=== PATIENT | male | born 1975 | race Caucasian/White ===

== ENCOUNTER 2018-12-07 15:21 | Emergency (ER) | payer BC ==
[~2018-12-07] VITALS: Ht 172.7 cm; Wt 72.7 kg
[2018-12-07] MEDS ORDERED: RANITIDINE150 M1 PO (15:39)
[2018-12-07 16:00] LABS: GFR > 60 ML/MIN (>=60 (CALC)); GFR FOR AFR.AMER. > 60 ML/MIN (>=60 (CALC))
[2018-12-07 16:20] LABS: HEMATOCRIT 48.4 % (39.0-50.0); HEMOGLOBIN 15.6 g/dl (14.0-18.0); IMMATURE GRANULOCYTES 0.6 % (0.0-5.0); MEAN CELL VOLUME 82.2 fL CALC (80.0-100.0); MEAN CORPUSCULAR HGB 26.5 pG CALC (26.0-32.0); MEAN CORPUSCULAR HGB CONC 32.2 g/L CALC (32.0-36.0); NEUT# 12.34 thou/uL (1.82-7.42); RED BLOOD COUNT 5.89 mill/uL (4.70-6.10); RED CELL DISTRI WIDTH 13.7 % (11.5-15.5)
[2018-12-07 16:40] LABS: ALBUMIN 4.7 g/dL (3.2-5.0); ALKALINE PHOSPHATASE 83 u/l (38-126); BILIRUBIN, TOTAL 0.6 mg/dL (0.0-1.4); BUN 11 mg/dL (9-20); BUN/CREATININE RATIO 14 (12-20 (CALC)); CARBON DIOXIDE 24 mmol/l (22-30); CHLORIDE 102 mmol/l (95-108); CREATININE 0.8 mg/dL (0.7-1.3); GFR > 60 ML/MIN (>=60 (CALC)); GFR FOR AFR.AMER. > 60 ML/MIN (>=60 (CALC)); SGOT/AST 28 u/l (17-59); SODIUM 139 mmol/l (137-146); TOTAL PROTEIN 7.4 g/dL (6.3-8.2)
[2018-12-07 16:49] LABS: ANION GAP 16 (6-22 (CALC)); POTASSIUM 3.4 mmol/l (3.5-5.1)
[2018-12-07 18:26] LABS: LIPASE 48321 u/l (23-300)
[2018-12-07 21:43] LABS: URINE BILIRUBIN - DIPSTICK NEGATIVE (NEGATIVE); URINE BLOOD DIPSTICK TRACE-INTACT (NEGATIVE); URINE COLOR YELLOW; URINE GLUCOSE - DIPSTICK NEGATIVE (NEGATIVE); URINE KETONE NEGATIVE (NEGATIVE); URINE LEUK ESTERASE NEGATIVE (Negative); URINE NITRITE - DIPSTICK NEGATIVE (Negative); URINE PROTEIN - DIPSTICK NEGATIVE (NEG-TRACE); URINE SPECIFIC GRAVITY 1.015; URINE UROBILINOGEN - DIPSTICK 0.2 E.U./dL (0.2)
[2018-12-07 21:45] LABS: URINE CLARITY CLEAR
[2018-12-08 01:55] VITALS: BP 133/72
== END 2018-12-08 01:55 | disposition short-term general hospital (02) | DRG 440 ==
LOC: ED 15:21
PROVIDERS: Family Medicine
DX: K85.90 Acute pancreatitis without necrosis or infection, unspecified (principal)
CPT/HCPCS: Q9967

== ENCOUNTER 2023-08-28 14:53 | Emergency (ER) | payer BC ==
[~2023-08-28] VITALS: Ht 172.7 cm; Wt 77.0 kg
[~2023-08-28 14:53] MED LIST: RANITIDINE150 M1 PO
[2023-08-28 15:24] VITALS: BP 152/87
[2023-08-28] MEDS ORDERED: LIDOcaine HCl 1% (Local Anesth.) 20 ML VIAL STI STA (15:24)
[2023-08-28] MEDS ORDERED: Diph, Acellular Pertussis, Tet 0.5 ML/VIAL (Tdap) SDV IM ONE (15:25)
[2023-08-28] MEDS ORDERED: POVIDONE IODINE 0.5 OZ/BTL TOP ONE (15:25)
[2023-08-28 15:30] VITALS: BP 139/96
[2023-08-28 15:47] VITALS: BP 99/51
[2023-08-28] MEDS ORDERED: MUPIROCIN (PSEUDOMONAS FLUORES 22 GM/TUBE TUBE TOP ONE (16:05)
[2023-08-28] MEDS ORDERED: CEPHALEXIN500 M1 PO (16:07)
[2023-08-28] MEDS ORDERED: BACTRIM DS1 TAB PO (16:07)
[2023-08-28] MEDS ORDERED: MUPIROCIN2 % EX (16:07)
[2023-08-28 16:31] VITALS: BP 131/83
== END 2023-08-28 16:31 | disposition home or self-care (01) | DRG 603 ==
LOC: ED 14:53
PROC: 0HDQXZZ Extraction of Finger Nail, External Approach (ICD-10-PCS; principal; 2023-08-28)
DX: L02.511 Cutaneous abscess of right hand (principal)